=== PATIENT | male | born 1985 | race Caucasian/White ===

== ENCOUNTER 2024-10-27 14:04 | Outpatient (CLI) | payer BC ==
[2024-10-27 16:03] LABS: PLATELET COUNT (AUTO) 298 K/uL (150-450); RED BLOOD CELL COUNT(AUTO) 5.52 MIL/uL (4.5-6.0); RED CELL DISTRIBUTION WIDTH 13.8 % (11.5-15.0); WHITE BLOOD COUNT (AUTO) 6.6 K/uL (4.3-11.0)
[2024-10-27 16:10] LABS: ERYTHROCYTE SEDIMENTATION RATE 28 MM/HR (0-15)
[2024-10-27 16:17] LABS: APPEARANCE,URINE CLEAR (CLEAR); BLOOD, URINE NEGATIVE Ery/uL (NEGATIVE); LEUKOCYTE ESTERASE ,URINE NEGATIVE (NEGATIVE); NITRITE, URINE NEGATIVE (NEGATIVE); UGLUCOSE NEGATIVE (NEGATIVE)
[2024-10-27 16:26] LABS: IRON, SERUM 56.0 ug/dl (50-175)
[2024-10-27 16:36] LABS: CREATININE, URINE 160.0 MG/DL (30.0-125.0)
[2024-10-27 17:00] LABS: ASPARTATE AMINOTRANSFERASE 24.0 U/L (15-37); CALCIUM, SERUM 9.1 mg/dL (8.5-10.1); CREATININE 0.8 mg/dL (0.6-1.3); SODIUM SERUM 145.0 mmol/L (136-145); TOTAL PROTEIN, SERUM 7.6 g/dL (6.4-8.2); UREA NITROGEN, BLOOD 13.0 mg/dL (7-18)
[2024-10-27 18:24] LABS: LDL 126.0 mg/dL (0-99)
[2024-10-29 02:07] LABS: VIT D, 25-HYDROXY 10.6 ng/mL (30.0-100.0)
[2024-10-29 05:08] LABS: *TESTOSTERONE, SERUM 363 ng/dL (264-916)
== END 2024-10-27 23:59 | disposition home or self-care (01) ==
LOC: RAD 14:04
PROVIDERS: ATTEND Internal Medicine
DX: I10 Essential (primary) hypertension (principal); Z79.899 Other long term (current) drug therapy; R79.89 Other specified abnormal findings of blood chemistry
CPT/HCPCS: 36415; 71046; 80053-TC; 80061-TC; 82172; 82306; 82570-TC; 82728-TC; 83540-TC; 83735-TC; 84403; 84439-TC; 84443-TC; 84550-TC; 85025-TC; 85652-TC; 86140-TC; 86803; 87340